=== PATIENT | female | born 2000 | race Asian ===

== ENCOUNTER 2024-09-14 14:45 | Outpatient (AMB) | payer OTHER, SELFPAY ==
--- NOTE | 2024-09-14 14:50 | MHC.PC.OV ---
Vital Signs 09/14/24 14:56 Height 5 ft 9 in Weight 110.223 kg BMI 35.9 BP 150/94 H Respiration 14 Pulse 129 H Temp 97.7 F Pulse Oximetry (%) 99 Oxygen Delivery Method Room Air Intake Visit Reasons: New Patient Hog Cooler Required: No Accompanied by: Self / Same As Patient Allergies No Known Allergies Allergy (Verified 09/14/24 14:55) HPI HPI Comments History of Present Illness Details 24 year old female with history of type 2 diabetes, suspected PCOS, and obesity presents to the office today for management of chronic conditions as well as annual physical exam. 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 She is currently living at home with her parents and sister and feels safe there. She will be transitioning to an apartment with a roommate next month. She denies any cigarette smoking and only occasional alcohol use. Denies any drug use though does endorse occasional marijuana use (edibles). Type 2 diabetes-following with [facility]. On metformin 1500 mg daily as well as Ozempic. Needs refill on [facility] [employer] [facility] Obesity- working on weight loss efforts. on ozempic Concerns: Raises concerns for PCOS. Does have jawline acne, some facial/neck hair, heavy menses that are occasionally irregular. Also central obesity and type 2 diabetes Health Maintenance: Overdue for cervical cancer screening ROS: General: No fevers, malaise, unintentional weight loss HEENT: No blurred vision, diplopia. No sore throat, nasal congestion, rhinorrhea, sinus pain, ear pain Neck - no adenopathy Cardiovascular: No chest pain, palpitations, or leg edema Respiratory: No shortness of breath, wheezing, cough GI: No abdominal pain, nausea, vomiting, diarrhea, constipation, melena, hematochezia : No dysuria, hematuria, increased urinary frequency, decreased urinary output Key Account Representative: No abnormal vaginal discharge. See HPI MSK: No myalgia, back pain, arthralgias Neuro: No headaches, weakness, paresthesias Psych: no depression/anxiery. No AH/VH. No SI/HI Skin: No rashes or lesions. See HPI EXAM: Constitutional - Awake and Alert, No apparent distress Eyes - PERRLA, EOMI. Anicteric Nose- septum midline, nares clear, no sinus tenderness Mouth/throat- mucosa moist, tongue and uvula midline, no erythema/edema or tonsillar adenopathy. Neck-trachea midline, thyroid symmetric without palpable nodules, no adenopathy Cardiovascular - S1S2, regular rhythm, tachycardia, No edema Respiratory - Normal lung expansion, Normal respiratory effort, No respiratory distress, CTA bilaterally Gastrointestinal - NT / ND; +BS; No rebound or guarding - No CVA tenderness Extremities - no calf tenderness bilaterally, no swelling Musculoskeletal - Normal inspection, normal ROM Skin - Warm/Dry. Acanthosis nigricans. Minimal acne along jawline Neurological - Alert & oriented x3, CN II-XII in tact, 08/01 strength BUE and BLE Psychological - Appropriate affect [facility] Medical History (Updated 09/14/24 @ 15:27 by TONIO Ortiz) Acne Diabetes Family History (Updated 09/14/24 @ 15:13 by TONIO Ortiz) Maternal Grandfather Diabetes Paternal Grandmother Colon cancer Questionnaire PHQ-9 Over the last 2 weeks, how often have you been bothered by any of the following problems? 1. Little interest or pleasure in doing things: not at all 2. Feeling down, depressed, or hopeless: not at all 3. Trouble falling or staying asleep, or sleeping too much: not at all 4. Feeling tired or having little energy: several days 5. Poor appetite or overeating: more than half the days 6. Feeling bad about yourself - or that you are a failure or have let yourself or your family down: not at all 7. Trouble concentrating on things, such as reading the newspaper or watching television: several days 8. Moving or speaking so slowly that other people could have noticed. Or the opposite - being so fidgety or restless that you have been moving around a lot more than usual: several days 9. Thoughts that you would be better off or of hurting yourself in some way: not at all Total score: 5 Source: Developed by Drs. Honorio Taveras, Laney Andres, Pola Cummings and colleagues, with an educational vince from [employer]. Thrive Questionnaire Date Thrive assessed: 09/14/24 I am a: Patient What is your living situation today?: I have a steady place to live Within the past 12 months, did the food you bought not last and you didn't have the money to get more?: Never true Within the past 12 months, did you worry whether your food would run out before you got money to buy more?: Never true Do you have trouble paying for medicines?: No Do you have trouble getting transportation to medical appointments?: No Do you have trouble paying your heating and electricity bill?: No Do you have trouble taking care of your child, family member or friend?: No Do you have trouble with day-to-day activities such as bathing, preparing meals, shopping, managing finances, etc.?: No Are you currently unemployed and looking for a job?: No Are you interested in more education?: No Please select the resources that you would like help with: None THRIVE Score: 0 RAINER-7 AMB Questionnaire RAINER-7 Date RAINER - 7 assessed: 09/14/24 Feeling nervous, anxious, or on edge: 1 = Several days Not being able to stop or control worryin = Several days Worrying too much about different things: 1 = Several days Trouble relaxin = Several days Being so restless that it is hard to sit still: 1 = Several days Becoming easily annoyed or irritable: 0 = Not at all Feeling afraid as if something awful might happen: 0 = Not at all Total RAINER-7 score (0-4 normal; 5-9 mild; 10-14 moderate; 15-21 severe): 5 Source: Developed by Drs. Honorio Taveras, Laney Andres, Pola Cummings and colleagues, with an educational vince from [employer]. Physical exam (Primary Care) Vital Signs: Last Vital Signs Temp 97.7 F 09/14/24 14:56 Pulse 129 H 09/14/24 14:56 Resp 14 09/14/24 14:56 BP 150/94 H 09/14/24 14:56 Pulse Ox 99 09/14/24 14:56 Oxygen Delivery Method Room Air 09/14/24 14:56 BMI result Body Mass Index 35.9 PHQ-9: PHQ-9 Score PHQ-9: Total score 5 09/16/24 13:36 Thrive Assessment: Date of Thrive Assessment Date Thrive assessed 09/14/24 09/14/24 14:59 Coding Level of Care Code Est Pt Level 4 (38938) New Pt Prev Care 18-39yr(27092 Diagnoses Encounter for routine history and physical examination of adult Z00.00 PCOS (polycystic ovarian syndrome) E28.2 Diabetes E11.9 Tachycardia R00.0 Assessment & Plan Assessment & Plan (1) Encounter for routine history and physical examination of adult: Code(s): Z00.00 - Encounter for general adult medical examination without abnormal findings (2) PCOS (polycystic ovarian syndrome): Code(s): E28.2 - Polycystic ovarian syndrome Category: Medical Plan: Suspected given signs of hyperandrogenism and insulin resistance. We will evaluate testosterone levels as well as prolactin. Can consider spironolactone. (3) Diabetes: Comment: amadou Code(s): E11.9 - Type 2 diabetes mellitus without complications Category: Medical Plan: Hemoglobin A1c ordered. Continue metformin and Ozempic as prescribed. Follow-up with [facility], records to be requested. Annual eye exams and foot exams. (4) Tachycardia: Code(s): R00.0 - Tachycardia, unspecified Category: Medical Plan: Sinus rhythm with improvement in heart rate to 118 with deep inspiration. Possibly anxiety related. Advised to check HR at home and contact the office if still elevated. Hydroxyzine sent to pharmacy to use as needed for anxiety Plan Routine screening labs as ordered below Referred for cervical cancer screening Continue following for annual skin exams and use sun protection Annual eye exams Wear seat belt in car Recommend regular exercise and healthy diet Orders: Orders Basic Metabolic Panel 09/14/24 Z00. - Encounter for general adult medical examination without abnormal findings Hemoglobin A1c 09/14/24 Z. - Encounter for general adult medical examination without abnormal findings Lipid Panel 09/14/24 Z00.00 - Encounter for general adult medical examination without abnormal findings Liver Panel 09/14/24 Z00.00 - Encounter for general adult medical examination without abnormal findings Vitamin D 25-OH Total 09/14/24 Z00. - Encounter for general adult medical examination without abnormal findings Prolactin Today E28.2 - Polycystic ovarian syndrome Microalbumin, Random (w Creat) 09/14/24 Z00. - Encounter for general adult medical examination without abnormal findings TSH reflex Free T4 09/14/24 Z. - Encounter for general adult medical examination without abnormal findings Complete Blood Count Auto Diff 06/18/25 Z00.00 - Encounter for general adult medical examination without abnormal findings Testosterone, Free/Total 09/14/24 E28.2 - Polycystic ovarian syndrome, L70.9 - Acne, unspecified, N92.0 - Excessive and frequent menstruation with regular cycle, R00.0 - Tachycardia, unspecified Referrals PUBLICITY AGENT Referral E11.9 - Type 2 diabetes mellitus without complications, E28.2 - Polycystic ovarian syndrome, Z00.00 - Encounter for general adult medical examination without abnormal findings, Z12.4 - Encounter for screening for malignant neoplasm of cervix Medications: New hydroxyzine HCl 25 mg PO TID PRN 90 tabs 0RF anxiety
[2024-09-14 14:56] VITALS: BP 150/94; PULSE 129; RESP 14; TEMP 36.5; O2SAT 99; BMI 35.9
--- OUTSIDE RECORDS SUMMARY | 2024-09-14 16:56 | XMS_ITS | Clinical Summary ---
Author Organization [facility] Facility Address [address] [place] [id number] Care Team Providers Care Barrel Brander Name Role Phone Unavailable Primary Care Provider Unavailabl e Medications metFORMIN XR (Glucophage XR) 750 MG 24 hr tablet Take 2 tablets (1,500 mg total) by mouth in the morning. Do not crush, chew, or split. . 180 tablet 08/02/2022 Active Social History Tobacco Use Types Packs/Day Years Used Date Smoking Tobacco: Never Assessed Comments Unknown Sex and Gender Information Value Date Recorded Sex Assigned at Female 08/27/2020 6:39 PM EDT Legal Sex Female 6:36 PM EDT Gender Identity Female 08/27/2020 6:39 PM EDT Sexual Orientation Not on file Plan of Treatment Health Maintenance Due Date Last Done Comments Hepatitis B Vaccine (1 of 3 - 19+ 3-dose series) 2020 Influenza Vaccine (Season Ended) 2024 Pneumococcal Vaccine: Peds ( 0 to 5 Years) and At-Risk Patients (6 to 49 Years) Aged Out No longer eligible b ased on patient's age to complete this topic
== END 2024-09-14 15:37 | disposition home or self-care (01) ==
LOC: HO.HMCHD 14:45
PROVIDERS: Visit Provider Physician Assistant
DX: Z00.00 Encounter for general adult medical examination without abnormal findings (principal); E28.2 Polycystic ovarian syndrome; E11.9 Type 2 diabetes mellitus without complications; R00.0 Tachycardia, unspecified

== ENCOUNTER 2024-09-29 15:43 | Outpatient (REF) | payer OTHER, SELFPAY ==
--- OUTSIDE RECORDS SUMMARY | 2024-09-29 15:46 | XMS_ITS | Clinical Summary ---
Author Organization [facility] Facility Address [address] [place] [id number] Care Team Providers Care Heading Matcher And Assembler Name Role Phone Unavailable Primary Care Provider [...]
[2024-09-29 17:39] LABS: MANUAL DIFF FLAG NO
[2024-09-29 17:48] LABS: Hematocrit 37.4 % (37.0-47.0); Hemoglobin 12.3 g/dl (12.0-16.0); Imm Gran Abs Auto 0.03 X10*3/uL (0.00-0.03); Imm Gran Pct Auto 0.3 % (0.0-0.4); Lymphocytes Absolute Auto 3.0 X10*3/uL (1.2-4.9); Mean Corpuscular HGB Conc 32.9 g/dl (31.0-35.0); Mean Corpuscular Hemoglobin 25.5 pg (27.0-33.0); Mean Corpuscular Volume 77.4 fL (80.0-98.0); NRBC Abs Auto 0.000 X10*3/uL (0.0-0.012); NRBC Pct Auto 0.0 /100WBC (0.0-0.2); Platelet Count 364 X10*3/uL (160-400); Red Blood Count 4.83 X10*6/uL (4.20-5.50); White Blood Count 10.4 X10*3/uL (4.8-10.8)
[2024-09-29 17:53] LABS: Hemoglobin A1C 233.5006 umol/L; Total Hemoglobin (HGBA1C) 3292.1167 umol/L
[2024-09-29 17:56] LABS: Microalbum/Creatinine Ratio Ur 23.6 ug/mg cr (<30)
[2024-09-29 18:01] LABS: Alanine Aminotransferase 17 U/L (0-31); Albumin Level 4.5 g/dL (3.5-5.0); Alkaline Phosphatase 65 U/L (39-117); Anion Gap 12 (12-20); Aspartate Amino Transferase 23 U/L (5-31); Blood Urea Nitrogen 15 mg/dL (9-16); Calcium 9.5 mg/dL (8.4-10.2); Carbon Dioxide 28 mmol/L (22-29); Chloride 103 mmol/L (96-108); Cholesterol 158 mg/dL (<200); Estimated Glomerular Filt Rate > 60; HDL Cholesterol 39 mg/dL (>40); Potassium 4.1 mmol/L (3.3-5.1); Sodium 139 mmol/L (135-145); Total Protein 7.7 g/dL (6.5-8.0); Triglycerides 137 mg/dL (<150)
[2024-10-04 17:24] LABS: Testosterone, Free 6.4 pg/mL (0.1-6.4)
== END 2024-09-29 15:44 | disposition home or self-care (01) ==
LOC: HO.HKASLDS 15:43
PROVIDERS: Visit Provider Physician Assistant
DX: Z00.00 Encounter for general adult medical examination without abnormal findings (principal); R00.0 Tachycardia, unspecified; N92.0 Excessive and frequent menstruation with regular cycle; E28.2 Polycystic ovarian syndrome; L70.9 Acne, unspecified; Z13.1 Encounter for screening for diabetes mellitus; Z13.6 Encounter for screening for cardiovascular disorders
CPT/HCPCS: 36415; 80048; 80061; 80076; 82043; 82306; 82570; 83036; 84146; 84402; 84403; 84443; 85025